=== PATIENT | male | born 1990 | race Caucasian/White ===

== ENCOUNTER 2017-10-18 22:34 | Emergency (ER) | payer OTHER ==
[~2017-10-18] VITALS: Ht 182.9 cm; Wt 122.5 kg
[~2017-10-18 22:34] MED LIST: HYDR1TAB94 PO; IBUP600 PO; IBUP800 PO; Pepcid40 MG PO; Prednisone10 MG PO; Prednisone20 MG PO; Triamcinolone A15 GM TOP
[2017-10-19] MEDS ORDERED: Prednisone20 MG PO (01:29)
[2018-01-20] MEDS ORDERED: BENADRYL25 MG PO (23:54)
== END 2017-10-19 02:29 | disposition home or self-care (01) ==
LOC: ER 22:34
DX: L50.0 Allergic urticaria (principal); Z91.018 Allergy to other foods; Z88.8 Allergy status to other drugs, medicaments and biological substances; Z88.0 Allergy status to penicillin; Z79.52 Long term (current) use of systemic steroids; Z87.891 Personal history of nicotine dependence
CPT/HCPCS: 99283; Q0163

== ENCOUNTER 2018-01-28 17:30 | Emergency (ER) | payer OTHER ==
[~2018-01-28] VITALS: Ht 182.9 cm; Wt 113.4 kg
[~2018-01-28 17:30] MED LIST changes: +BENADRYL25 MG PO
== END 2018-01-28 18:50 | disposition home or self-care (01) ==
LOC: ER 17:30
DX: H57.8 Other specified disorders of eye and adnexa (principal); Z91.02 Food additives allergy status; Z91.018 Allergy to other foods; Z88.0 Allergy status to penicillin; Z91.048 Other nonmedicinal substance allergy status
CPT/HCPCS: 99283

== ENCOUNTER 2018-02-15 21:20 | Emergency (ER) | payer OTHER ==
[~2018-02-15] VITALS: Ht 182.9 cm; Wt 108.9 kg
== END 2018-02-15 22:15 | disposition home or self-care (01) ==
LOC: ER 21:20
DX: K08.89 Other specified disorders of teeth and supporting structures (principal); Z88.8 Allergy status to other drugs, medicaments and biological substances; Z91.018 Allergy to other foods; Z88.0 Allergy status to penicillin
CPT/HCPCS: 64400; 99283

== ENCOUNTER 2018-02-17 16:58 | Emergency (ER) | payer OTHER ==
[~2018-02-17] VITALS: Ht 182.9 cm; Wt 116.7 kg
[2018-02-17] MEDS ORDERED: Ativan1 MG PO (17:46)
== END 2018-02-17 18:08 | disposition home or self-care (01) ==
LOC: ER 16:58
DX: R07.89 Other chest pain (principal); F41.9 Anxiety disorder, unspecified; Z91.02 Food additives allergy status; Z91.018 Allergy to other foods; Z91.048 Other nonmedicinal substance allergy status; Z88.0 Allergy status to penicillin; Z87.891 Personal history of nicotine dependence
CPT/HCPCS: 93005; 93010; 99283

== ENCOUNTER 2018-03-12 01:16 | Emergency (ER) | payer OTHER ==
[~2018-03-12] VITALS: Ht 182.9 cm; Wt 113.4 kg
[~2018-03-12 01:16] MED LIST changes: +Ativan1 MG PO
[2018-03-12] MEDS ORDERED: VALACYCLOVIR1000 MG PO (02:00)
== END 2018-03-12 02:11 | disposition home or self-care (01) ==
LOC: ER 01:16
DX: A60.01 Herpesviral infection of penis (principal); Z91.02 Food additives allergy status; Z91.018 Allergy to other foods; Z91.048 Other nonmedicinal substance allergy status; Z88.0 Allergy status to penicillin
CPT/HCPCS: 99283

== ENCOUNTER 2018-12-19 00:24 | Observation (INO) | payer OTHER ==
[~2018-12-19] VITALS: Ht 182.9 cm; Wt 122.5 kg
[~2018-12-19 00:24] MED LIST changes: +VALACYCLOVIR1000 MG PO
[2018-12-19 01:29] LABS: BASOPHILS ABSOLUTE AUTO 0.09 K/mm3 (0.00-0.23); BASOPHILS PERCENT AUTO 1 % (0-2); EOSINOPHILS ABSOLUTE AUTO 0.47 K/mm3 (0.00-0.68); EOSINOPHILS PERCENT AUTO 4 % (0-6); Hematocrit 45.4 % (37.0-53.0); Hemoglobin 15.4 g/dL (13.5-17.5); IMMATURE GRAN ABSOLUTE AUTO 0.06 K/mm3 (0.00-0.10); IMMATURE GRAN PERCENT AUTO 1 % (0-1); LYMPHOCYTES ABSOLUTE AUTO 2.28 K/mm3 (0.84-5.20); LYMPHOCYTES PERCENT AUTO 18 % (21-46); MONOCYTES ABSOLUTE AUTO 1.01 K/mm3 (0.16-1.47); MONOCYTES PERCENT AUTO 8 % (4-13); Mean Corpuscular HGB 30.4 pg (26.0-34.0); Mean Corpuscular HGB Conc 33.9 g/dL (31.5-36.5); Mean Corpuscular Volume 90 fL (80-100); Mean Platelet Volume 9.3 fL (9.1-12.4); NEUTROPHILS PERCENT AUTO 69 % (41-73); Platelet Count 273 K/mm3 (150-400); RDW Coefficient Variation 12.1 % (11.7-14.2); RDW Standard Deviation 39.7 fL (35.1-46.3); Red Blood Cell Count 5.06 M/mm3 (4.30-5.90); White Blood Cell Count 12.61 K/mm3 (4.00-11.30)
[2018-12-19 01:52] LABS: Alanine Aminotransfer (ALT/SGP 68 U/L (12-78); Albumin, Blood 3.9 g/dL (3.4-5.0); Albumin/Globulin Ratio 1.2 (0.8-1.8); Alk Phos 73 U/L (50-136); Anion Gap 8 mmol/L (6-16); Aspartate Aminotrans (AST/SGOT 21 U/L (12-37); Bilirubin, Total 1.4 mg/dL (0.1-1.0); Blood Urea Nitrogen 15 mg/dL (8-24); Bun/Creatinine Ratio 20.1 (12.0-20.0); CO2, Blood 24 mmol/L (21-32); Calcium, Blood 8.8 mg/dL (8.5-10.1); Chloride, Blood 111 mmol/L (98-108); Creatinine, Blood 0.75 mg/dL (0.60-1.20); Globulin, Blood 3.3 g/dL (2.2-4.0); Glomerular Filtration Rate >60 (60-); Glucose, Blood 110 mg/dL (70-99); Potassium, Blood 3.8 mmol/L (3.5-5.5); Sodium, Blood 143 mmol/L (136-145); Total Protein, Blood 7.2 g/dL (6.4-8.2)
--- NOTE | 2018-12-19 08:56 | NUR ---
PT ARRIVED TO UNIT. TALKING ON PHONE. GAVE CALL LIGHT AND ADVISED TO CALL WHEN OFF PHONE SO MAY DO ADMIT.
--- NOTE | 2018-12-19 09:49 | NUR ---
pt to surgery
--- NOTE | 2018-12-19 11:47 | NUR ---
PT RESTING QUIETLY. JAME WALDEN RN ASSUMED PT CARE. NO ACUTE CHANGES AT END OF MY CARE.
--- NOTE | 2018-12-19 12:15 | NUR ---
PT ARRIVED BACK TO UNIT FROM PACU REPORTS 5/10 PAIN. VERY DROWSY. VSS. EMESIS BAG WITHIN REACH. CALL LIGHT WITHIN REACH. IV INFUSING W/O DIFFICULTY. LAP INCISIONS X3 TO ABD CDI.
--- NOTE | 2018-12-19 17:13 | NUR ---
SUMMARY S/P LAP APPY THIS SHIFT. VSS. TOLERATING PO. AMBULATED IN RESTROOM AND VOIDED IN TOILET. MEDICATED PER ORDERS W/1 NORCO FOR 5/10 ABD PAIN. PT NOW SLEEPING. CALL LIGHT IN REACH.
[2018-12-20] MEDS ORDERED: HYDR1TAB94 PO (10:21)
--- NOTE | 2018-12-20 10:39 | NUR ---
DISCHARGE PT EDUCATED ON AND RECEIVED PRINTED DC INSTRUCTIONS AND VERBALIZED AN UNDERSTANDING. HARD RX FOR NORCO GIVEN TO PT. IV DC'D. PT GATHERING ALL PERSONAL BELONGINGS AND WAITING FOR HIS DAD FOR TRANSPORTATION HOME.
== END 2018-12-20 11:25 | disposition home or self-care (01) ==
LOC: ER 00:24 → ERHOLD 00:25 → SURS 08:48
PROVIDERS: Emergency Medicine; ADMIT Surgery
PROC: 0DTJ4ZZ Resection of Appendix, Percutaneous Endoscopic Approach (ICD-10-PCS; principal; 2018-12-19 10:45)
DX: K35.80 Unspecified acute appendicitis (principal); Z23 Encounter for immunization; Z88.0 Allergy status to penicillin
CPT/HCPCS: 36415; 74176; 80053; 85025; 88304; 90686; 96361; 96365; 96372; 96375; 99285-25; A9270-GY; G0378; J0692; J1100; J1170; J1650; J1885; J2250; J2405; J2710; J2765; J3010; J7030; J7120

== ENCOUNTER 2019-03-18 09:42 | Emergency (ER) | payer OTHER ==
[~2019-03-18] VITALS: Ht 182.9 cm; Wt 127.0 kg
[2019-03-18 10:37] LABS: BASOPHILS ABSOLUTE AUTO 0.07 K/mm3 (0.00-0.23); BASOPHILS PERCENT AUTO 1 % (0-2); EOSINOPHILS ABSOLUTE AUTO 0.51 K/mm3 (0.00-0.68); EOSINOPHILS PERCENT AUTO 8 % (0-6); Hematocrit 45.8 % (37.0-53.0); Hemoglobin 15.8 g/dL (13.5-17.5); IMMATURE GRAN ABSOLUTE AUTO 0.04 K/mm3 (0.00-0.10); IMMATURE GRAN PERCENT AUTO 1 % (0-1); LYMPHOCYTES ABSOLUTE AUTO 1.75 K/mm3 (0.84-5.20); LYMPHOCYTES PERCENT AUTO 26 % (21-46); MONOCYTES ABSOLUTE AUTO 0.79 K/mm3 (0.16-1.47); MONOCYTES PERCENT AUTO 12 % (4-13); Mean Corpuscular HGB 30.7 pg (26.0-34.0); Mean Corpuscular HGB Conc 34.5 g/dL (31.5-36.5); Mean Corpuscular Volume 89 fL (80-100); Mean Platelet Volume 9.4 fL (9.1-12.4); NEUTROPHILS PERCENT AUTO 53 % (41-73); Platelet Count 286 K/mm3 (150-400); RDW Coefficient Variation 12.2 % (11.7-14.2); RDW Standard Deviation 39.9 fL (35.1-46.3); Red Blood Cell Count 5.15 M/mm3 (4.30-5.90); White Blood Cell Count 6.76 K/mm3 (4.00-11.30)
[2019-03-18 10:53] LABS: Alanine Aminotransfer (ALT/SGP 83 U/L (12-78); Albumin, Blood 3.8 g/dL (3.4-5.0); Albumin/Globulin Ratio 1.1 (0.8-1.8); Alk Phos 78 U/L (50-136); Anion Gap 6 mmol/L (6-16); Aspartate Aminotrans (AST/SGOT 26 U/L (12-37); Bilirubin, Total 2.1 mg/dL (0.1-1.0); Blood Urea Nitrogen 12 mg/dL (8-24); Bun/Creatinine Ratio 15.9 (12.0-20.0); CO2, Blood 24 mmol/L (21-32); Calcium, Blood 8.9 mg/dL (8.5-10.1); Chloride, Blood 111 mmol/L (98-108); Creatinine, Blood 0.75 mg/dL (0.60-1.20); Globulin, Blood 3.5 g/dL (2.2-4.0); Glomerular Filtration Rate >60 (60-); Glucose, Blood 132 mg/dL (70-99); Potassium, Blood 4.2 mmol/L (3.5-5.5); Sodium, Blood 141 mmol/L (136-145); Total Protein, Blood 7.3 g/dL (6.4-8.2)
[2019-03-18] MEDS ORDERED: Zofran4 MG PO (12:08)
== END 2019-03-18 12:22 | disposition home or self-care (01) ==
LOC: ER 09:42
PROVIDERS: Emergency Medicine
DX: R10.13 Epigastric pain (principal); R11.2 Nausea with vomiting, unspecified; R19.7 Diarrhea, unspecified; Z91.018 Allergy to other foods
CPT/HCPCS: 36415; 76700; 80053; 83690; 85025; 96361; 96374; 99284-25; J2405; J7030

== ENCOUNTER 2019-04-08 11:44 | Emergency (ER) | payer OTHER ==
[~2019-04-08] VITALS: Ht 182.9 cm; Wt 127.0 kg
[~2019-04-08 11:44] MED LIST changes: +Zofran4 MG PO
[2019-04-08] MEDS ORDERED: PENVK500 (11:50)
[2019-04-08] MEDS ORDERED: Cleocin HCl300 MG PO (12:07)
[2019-04-08] MEDS ORDERED: KETO10 PO (12:18)
== END 2019-04-08 12:53 | disposition home or self-care (01) ==
LOC: ER 11:44
DX: K02.9 Dental caries, unspecified (principal); Z91.018 Allergy to other foods; Z88.8 Allergy status to other drugs, medicaments and biological substances
CPT/HCPCS: 64400; 99282-25

== ENCOUNTER 2019-07-15 04:24 | Emergency (ER) | payer OTHER ==
[~2019-07-15] VITALS: Ht 182.9 cm; Wt 127.0 kg
[~2019-07-15 04:24] MED LIST changes: +Cleocin HCl300 MG PO; +KETO10 PO; +PENVK500
[2019-07-15 05:15] LABS: Source, Urine Voided
[2019-07-15 05:17] LABS: BASOPHILS ABSOLUTE AUTO 0.06 K/mm3 (0.00-0.23); BASOPHILS PERCENT AUTO 1 % (0-2); EOSINOPHILS ABSOLUTE AUTO 0.57 K/mm3 (0.00-0.68); EOSINOPHILS PERCENT AUTO 7 % (0-6); Hematocrit 45.2 % (37.0-53.0); Hemoglobin 15.3 g/dL (13.5-17.5); IMMATURE GRAN ABSOLUTE AUTO 0.04 K/mm3 (0.00-0.10); IMMATURE GRAN PERCENT AUTO 1 % (0-1); LYMPHOCYTES ABSOLUTE AUTO 2.23 K/mm3 (0.84-5.20); LYMPHOCYTES PERCENT AUTO 26 % (21-46); MONOCYTES ABSOLUTE AUTO 0.98 K/mm3 (0.16-1.47); MONOCYTES PERCENT AUTO 11 % (4-13); Mean Corpuscular HGB 30.6 pg (26.0-34.0); Mean Corpuscular HGB Conc 33.8 g/dL (31.5-36.5); Mean Corpuscular Volume 90 fL (80-100); Mean Platelet Volume 9.4 fL (9.1-12.4); NEUTROPHILS ABSOLUTE AUTO 4.83 K/mm3 (1.96-9.15); NEUTROPHILS PERCENT AUTO 55 % (41-73); Platelet Count 281 K/mm3 (150-400); RDW Coefficient Variation 12.2 % (11.7-14.2); RDW Standard Deviation 39.9 fL (35.1-46.3); White Blood Cell Count 8.71 K/mm3 (4.00-11.30)
[2019-07-15 05:19] LABS: Appearance, Urine Clear (Clear); Bilirubin, Urine Neg (Neg); Blood, Urine Neg (Neg); Color, Urine Yellow (P-Yellow); Glucose Qualitative, Urine Neg (Neg); Ketones, Urine Neg (Neg); Leukocyte Esterase, Urine Neg (Neg); Nitrite, Urine Neg (Neg); Protein, Urine 1+ (Neg); Urobilinogen, Urine NORM (Normal)
[2019-07-15 05:56] LABS: Alanine Aminotransfer (ALT/SGP 60 U/L (12-78); Albumin, Blood 3.7 g/dL (3.4-5.0); Albumin/Globulin Ratio 1.1 (0.8-1.8); Alk Phos 79 U/L (50-136); Anion Gap 5 mmol/L (6-16); Aspartate Aminotrans (AST/SGOT 27 U/L (12-37); Bilirubin, Total 1.2 mg/dL (0.1-1.0); Blood Urea Nitrogen 14 mg/dL (8-24); Bun/Creatinine Ratio 16.9 (12.0-20.0); CO2, Blood 26 mmol/L (21-32); Calcium, Blood 8.9 mg/dL (8.5-10.1); Chloride, Blood 110 mmol/L (98-108); Creatinine, Blood 0.83 mg/dL (0.60-1.20); Globulin, Blood 3.5 g/dL (2.2-4.0); Glomerular Filtration Rate >60 (60-); Glucose, Blood 101 mg/dL (70-99); Sodium, Blood 141 mmol/L (136-145); Total Protein, Blood 7.2 g/dL (6.4-8.2)
[2019-07-15] MEDS ORDERED: ONDA4ODT MM (06:48)
[2019-07-15] MEDS ORDERED: Dicyclomine HCl20 MG PO (06:48)
== END 2019-07-15 07:00 | disposition home or self-care (01) ==
LOC: ER 04:24
PROVIDERS: Emergency Medicine
DX: K52.9 Noninfective gastroenteritis and colitis, unspecified (principal); Z91.018 Allergy to other foods; Z88.8 Allergy status to other drugs, medicaments and biological substances
CPT/HCPCS: 36415; 80053; 83690; 85025; 99283

== ENCOUNTER 2020-03-20 19:30 | Emergency (ER) | payer OTHER ==
[~2020-03-20] VITALS: Ht 182.9 cm; Wt 127.0 kg
[~2020-03-20 19:30] MED LIST changes: +ALBU90OI INH; +Dicyclomine HCl20 MG PO; +ONDA4ODT MM
[2020-03-20] MEDS ORDERED: KETO10 PO (22:21)
== END 2020-03-20 22:51 | disposition home or self-care (01) ==
LOC: ER 19:30
DX: R09.1 Pleurisy (principal); M94.0 Chondrocostal junction syndrome [Tietze]; Z91.02 Food additives allergy status; Z91.048 Other nonmedicinal substance allergy status; Z91.018 Allergy to other foods
CPT/HCPCS: 71046; 93005; 93010; 96372; 99284-25; J1885

== ENCOUNTER 2020-09-27 16:38 | Emergency (ER) | payer OTHER ==
[~2020-09-27] VITALS: Ht 182.9 cm; Wt 122.5 kg
[2020-09-27] MEDS ORDERED: KEFLEX500 MG PO (18:12)
== END 2020-09-27 18:19 | disposition home or self-care (01) ==
LOC: ER 16:38
DX: R22.32 Localized swelling, mass and lump, left upper limb (principal); Z91.018 Allergy to other foods; Z91.09 Other allergy status, other than to drugs and biological substances
CPT/HCPCS: 10060; 99282-25; A9270-GY

== ENCOUNTER → 2020-10-01 | Outpatient (CLI) | payer OTHER ==
[~2020-10-01] MED LIST changes: +KEFLEX500 MG PO
== END ==
LOC: LAB SHORT 09:00
DX: L03.012 Cellulitis of left finger (principal)
CPT/HCPCS: 87070; 87205

== ENCOUNTER 2021-09-21 19:46 | Emergency (ER) | payer OTHER ==
[~2021-09-21] VITALS: Ht 182.9 cm; Wt 122.5 kg
[2021-09-21] MEDS ORDERED: Bactrim Ds Tab1 EACH PO (21:43)
== END 2021-09-21 21:48 | disposition home or self-care (01) ==
LOC: ER 19:46
DX: L03.011 Cellulitis of right finger (principal); Z91.018 Allergy to other foods; Z91.048 Other nonmedicinal substance allergy status; Z88.8 Allergy status to other drugs, medicaments and biological substances
CPT/HCPCS: 10060; 99283-25; A9270

== ENCOUNTER 2021-10-11 12:54 | Emergency (ER) | payer OTHER ==
[~2021-10-11] VITALS: Ht 182.9 cm; Wt 122.5 kg
[~2021-10-11 12:54] MED LIST changes: +Bactrim Ds Tab1 EACH PO
[2021-10-11] MEDS ORDERED: AMOCLA875 PO (13:39)
[2021-10-12] MEDS ORDERED: CIPRODEX OTIC7.5 M1 LEFTEAR (22:58)
== END 2021-10-11 13:55 | disposition home or self-care (01) ==
LOC: ER 12:54
DX: H66.92 Otitis media, unspecified, left ear (principal); H61.23 Impacted cerumen, bilateral; Z91.02 Food additives allergy status; Z91.018 Allergy to other foods; Z88.8 Allergy status to other drugs, medicaments and biological substances
CPT/HCPCS: A9270

== ENCOUNTER 2021-10-12 22:26 | Emergency (ER) | payer OTHER ==
[~2021-10-12] VITALS: Ht 182.9 cm; Wt 104.3 kg
[~2021-10-12 22:26] MED LIST changes: +AMOCLA875 PO
[2021-10-12] MEDS ORDERED: CIPRODEX OTIC7.5 M1 LEFTEAR (22:58)
== END 2021-10-12 23:35 | disposition home or self-care (01) ==
LOC: ER 22:26
DX: H60.91 Unspecified otitis externa, right ear (principal); Z91.018 Allergy to other foods; Z91.048 Other nonmedicinal substance allergy status; Z79.899 Other long term (current) drug therapy
CPT/HCPCS: A9270; J1885

== ENCOUNTER → 2021-11-12 | Outpatient (CLI) | payer OTHER ==
[~2021-11-12] MED LIST changes: +CIPRODEX OTIC7.5 M1 LEFTEAR
== END | disposition home or self-care (01) ==
LOC: LAB SHORT 18:25
DX: H60.312 Diffuse otitis externa, left ear (principal)
CPT/HCPCS: 87070; 87106; 87205

== ENCOUNTER 2023-08-17 23:30 | Emergency (ER) | payer OTHER, BC ==
[~2023-08-17] VITALS: Ht 185.4 cm; Wt 113.4 kg
[2023-08-17 23:39] VITALS: BP 135/90
== END 2023-08-18 00:38 | disposition home or self-care (01) ==
LOC: ER 23:30
DX: S61.411A Laceration without foreign body of right hand, initial encounter (principal); Z91.018 Allergy to other foods; W26.9XXA Contact with unspecified sharp object(s), initial encounter; Y99.0 Civilian activity done for income or pay
CPT/HCPCS: 99282

== ENCOUNTER 2024-09-09 21:30 | Emergency (ER) | payer BC, OTHER ==
[~2024-09-09] VITALS: Ht 185.4 cm; Wt 127.0 kg
[2024-09-09 21:48] VITALS: BP 141/85
[2024-09-09] MEDS ORDERED: CEPH500 PO (22:41)
[2024-09-09] MEDS ORDERED: Cephalexin Monohydrate 500 MG Cap PO ONE (23:05)
== END 2024-09-09 23:10 | disposition home or self-care (01) ==
LOC: ER 21:30
DX: L02.213 Cutaneous abscess of chest wall (principal); Z91.02 Food additives allergy status
CPT/HCPCS: 10060; 99282-25; A9270

== ENCOUNTER 2025-03-06 21:09 | Emergency (ER) | payer OTHER ==
[~2025-03-06] VITALS: Ht 185.4 cm; Wt 136.1 kg
[~2025-03-06 21:09] MED LIST changes: +CEPH500 PO
[2025-03-06] MEDS ORDERED: Ibuprofen 600 MG Tab PO ONE (23:20)
[2025-03-07 00:03] VITALS: BP 141/91
[2025-03-07] MEDS ORDERED: IBU600 MG PO (00:05)
== END 2025-03-07 00:33 | disposition home or self-care (01) ==
LOC: ER 21:09
DX: S80.212A Abrasion, left knee, initial encounter (principal); M25.562 Pain in left knee; M25.561 Pain in right knee; Z91.018 Allergy to other foods; Z91.048 Other nonmedicinal substance allergy status; W01.0XXA Fall on same level from slipping, tripping and stumbling without subsequent striking against object, initial encounter
CPT/HCPCS: 73562-LT; 73562-RT; 99283-25; A9270

== ENCOUNTER 2025-05-03 07:53 | Day surgery (SDC) | payer BC, OTHER ==
[~2025-05-03] VITALS: Ht 185.4 cm; Wt 126.3 kg
[~2025-05-03 07:53] MED LIST changes: +Bupivacaine 0.5% W/EPI 1:200000 SDV 30 ML Vial ONE; +IBU600 MG PO
[2025-05-03] MEDS ORDERED: CeFAZolin Sodium 2,000 MG VIAL ONE (08:06)
[2025-05-03] MEDS ORDERED: CeFAZolin Sodium 3,000 MG VIAL ONE (08:07)
[2025-05-03] MEDS ORDERED: FentaNYL Citrate 50 MCG/ML 2 ML Injection ONE (08:45)
[2025-05-03] MEDS ORDERED: Dexamethasone Sod Phos 10 MG/ML 1ML VIAL ONE (09:01)
[2025-05-03] MEDS ORDERED: Ketorolac Tromethamine 30mg Vial ONE (09:01)
[2025-05-03] MEDS ORDERED: Ondansetron HCl 2 MG / ML 2ML Vial ONE ×2 (09:01→09:47)
--- NOTE | 2025-05-03 09:36 | NUR ---
05/03/25 0936 Estela Guerra PT TO PACU. SATTING 90% ON RA UPON ARRIVAL, DESAT TO MID70S, O2 VIA NC APPLIED, SATS RESTABILIZED. PT SCRATCHING EYES, BUT OTHERWISE APPEARS COMFORTABLE. UPON DC FROM PACU DENIES PAIN, C/O DIZZYNESS. L HAND #18G NOT FLUSH W SKIN, DSG REINFORCED.
[2025-05-03] MEDS ORDERED: Metoclopramide HCl 5MG / ML 2ML Vial ONE (09:59)
--- NOTE | 2025-05-03 10:09 | NUR ---
05/03/25 [id number] Estela Guerra MEDICATED FOR NAUSEA [id number] [facility] [phone] 10 JAY TO BEDSIDE FOR EMOTIONAL SUPPORT
[2025-05-03 10:33] VITALS: BP 116/83
== END 2025-05-03 10:45 | disposition home or self-care (01) ==
LOC: ORSCSDS 07:53
PROVIDERS: Podiatrist Foot & Ankle Surgery
PROC: 0JBR0ZX Excision of Left Foot Subcutaneous Tissue and Fascia, Open Approach, Diagnostic (ICD-10-PCS; principal; 2025-05-03 09:15)
DX: G57.62 Lesion of plantar nerve, left lower limb (principal); E66.9 Obesity, unspecified; Z68.36 Body mass index [BMI] 36.0-36.9, adult
CPT/HCPCS: A6253; J0690; J1100; J1885; J2405; J2704; J2765; J3010; J7120